=== PATIENT | female | born 1975 | race Caucasian/White ===

== ENCOUNTER 2019-08-04 05:49 | Observation (INO) | payer MEDICAID ==
[~2019-08-04] VITALS: Ht 154.9 cm; Wt 86.2 kg
[2019-08-04] MEDS ORDERED: FERR325T6 PO (06:12)
[2019-08-04] MEDS ORDERED: PNV1TABL76 PO (06:12)
[2019-08-04] MEDS ORDERED: LACTATED RINGERS 1,000 ML IV SCH (06:15)
[2019-08-04 06:32] LABS: BASOPHILS % 0.4 % (0.0-2.0); EOSINOPHILS % 0.9 % (0.0-5.0); HEMATOCRIT. 34.4 % (36.0-48.0); HEMOGLOBIN. 11.8 g/dL (12.0-16.0); LYMPHOCYTES % 19.7 % (20.0-50.0); MEAN CORPUSCULAR HEMOGLOBIN 28.3 pg (28.0-32.0); MEAN CORPUSCULAR VOLUME 82.7 fL (81.0-99.0); MEAN PLATELET VOLUME 7.1 fl (7.4-10.4); MONOCYTES % 6.6 % (2.0-8.0); NEUTROPHILS % 72.4 % (40.0-76.0); PLATELET 284 x1000/uL (130-400); RED BLOOD CELL COUNT 4.17 mill/uL (4.2-5.4); RED CELL DISTRIBUTION WIDTH 13.4 % (11.6-14.6)
[2019-08-04 06:39] LABS: CLARITY URINE CLEAR (CLEAR); COLOR URINE ORANGE (YELLOW); KETONES URINE NEGATIVE (NEGATIVE); LEUKOCYTE ESTERASE URINE NEGATIVE (NEGATIVE); NITRITE URINE NEGATIVE (NEGATIVE); OCCULT BLOOD URINE 3+ (NEGATIVE); PH URINE 6.5 (4.5-8.0); PROTEIN URINE TRACE (NEGATIVE); SPECIFIC GRAVITY URINE 1.013 (1.005-1.030); UROBILINOGEN URINE 0.2 E.U./dL (0.2-1.0)
[2019-08-04] MEDS ORDERED: TERBUTALINE SULFATE 1MG/ML VIAL SUBCUT NR (09:30)
== END 2019-08-04 14:00 | disposition home or self-care (01) ==
LOC: 8 EST LDRP 05:49
PROVIDERS: ADMIT Obstetrics & Gynecology; ATTEND Obstetrics & Gynecology
DX: O46.93 Antepartum hemorrhage, unspecified, third trimester (principal)
CPT/HCPCS: 36415; 76805; 76817; 76818; 81003; 85025; 96372; 99281; G0378; J3105; 96360; 96361; J7120